=== PATIENT | male | born 1935 | race Caucasian/White ===

== ENCOUNTER 2016-11-01 09:48 | Emergency (ER) | payer MEDICARE, BC ==
[2016-11-01 09:28] LABS: BASOPHILS 0.2 %; BASOPHILS ABSOLUTE 0.02 10/3/uL (0.0-0.16); EOSINOPHILS ABSOLUTE 0.11 10/3/uL (0.0-0.53); HEMATOCRIT 38.6 % (40.0-51.0); HEMOGLOBIN 12.6 g/dL (13.6-17.8); IMMATURE GRANULOCYTES 0.3 %; IMMATURE GRANULOCYTES ABSOLUTE 0.03 10/3/uL (0.0-0.11); LYMPHOCYTES 28.7 %; MANUAL DIFF NO %; MEAN CORPUS HGB CONC 32.6 g/dL (32.0-36.0); MEAN CORPUSCULAR HEMOGLOB 29.5 pg (26.0-34.0); MEAN CORPUSCULAR VOLUME 90.4 fL (80-100); MEAN PLATELET VOLUME 9.1 fL (9.2-13.0); MONOCYTES 7.2 %; MONOCYTES ABSOLUTE 0.78 10/3/uL (0.21-1.20); NEUTROPHILS 62.6 %; NEUTROPHILS ABSOLUTE 6.78 10/3/uL (2.02-8.40); PLATELET COUNT 218 10/3/uL (150-400); RBC DISTRIBUTION WIDTH 14.9 % (12.0-16.0); RED CELL COUNT 4.27 10/6/uL (4.7-6.1); WHITE BLOOD CELLS 10.8 10/3/uL (4.5-10.5)
[2016-11-01 09:34] LABS: INTERNATIONAL NORMAL RATI 1.2 UNITS (-); PARTIAL THROMBO TIME 24.2 SEC (22.5-37.2); PROTIME (NOT ORD) 14.7 SEC (12.0-14.5)
[2016-11-01 09:41] LABS: ASCORBIC ACID (UR NOT ORDER) NEG (NEG); BILIRUBIN, URINE NEGATIVE (NEG); ER URINALYSIS TAT 0 Hrs 07 Mins; KETONE, URINE NEGATIVE (NEG); LEUKOCYTE ESTERASE(NOT OR NEG (NEG); NITRITE (URINE) NEG (NEG); WBC (NOT ORDERED) (RFLEX) 1 (0-5)
[2016-11-01 09:44] LABS: CHEST PAIN PROFILE TAT 0 Hrs 22 Mins; CHLORIDE, SERUM 109 MMOL/L (96-112); CO2 (CARBON DIOXIDE) 25 MMOL/L (24-34); CREATININE 1.29 MG/DL (0.70-1.30); GFR AFRICAN AMERICAN 60 ML/MIN (>=60); GFR NON AFRICAN AMERICAN 52 ML/MIN (>=60); POTASSIUM, SERUM 3.7 MMOL/L (3.5-5.3); SODIUM, SERUM 143 MMOL/L (135-148); TROPONIN I <0.02 NG/ML (<0.05)
[2016-11-01 09:46] LABS: BUN (BLOOD UREA NITROGEN) 36 MG/DL (6-23); CALCIUM, SERUM 8.1 MG/DL (8.5-10.4); GLUCOSE, SERUM 175 MG/DL (60-99)
[~2016-11-01 09:48] MED LIST: AMARYL1 MG PO; AMARYL2 PO; ASAB PO; CRESTOR20 MG PO; FISH-EPA1000 MG PO; GLUCPH8 PO; GLYNASE3 PO; INSPRA25 PO; JANUVIA100 MG PO; L20 PO; LEVEMFLXPN SC; LIPITOR40 PO; LOP25 PO; LOP50 PO; LORTAB 5 PO; NEUR600 PO; NITROSTAT0.4 MG SL; NORCO1 TAB PO; PROTONIX PO; SUCR PO; ZANTAC150 MG PO
[2016-11-01 11:51] LABS: LACTATE 1.2 MMOL/L (0.3-2.4)
[2016-11-01 11:53] LABS: PROCALCITONIN <0.05 ng/mL (<0.5)
== END 2016-11-01 15:03 | disposition home or self-care (01) ==
LOC: ER 09:48
PROVIDERS: Emergency Medicine
DX: I95.1 Orthostatic hypotension (principal); E11.9 Type 2 diabetes mellitus without complications; I10 Essential (primary) hypertension; Z95.1 Presence of aortocoronary bypass graft; Z79.82 Long term (current) use of aspirin; Z79.4 Long term (current) use of insulin; Z79.899 Other long term (current) drug therapy
CPT/HCPCS: 71010; 80048; 81001; 83605; 83735; 84145; 84484; 85025; 85610; 85730; 96374; 99285; J2405

== ENCOUNTER 2016-11-05 17:50 | Inpatient (IN) | payer MEDICARE, BC ==
--- NOTE | ~2016-11-05 | EEG ---
Electroencephalogram [id number] [place]. [address] NAME: BARRETT SOLORIO : 35 STATUS : DIS IN PAT#: [id number] AGE: 81 ADM/REG DATE : 11/05/16 MR#: [id number] REPORT SERV DATE: 11/08/16 DICTATED BY: YULY PATTEN DATE: 11/08/16 REPORT STATUS : Draft TRANSCRIBED BY: LOGAN DATE: 11/08/16 LOCATION OF THE PATIENT: CDU bed 23. REFERRING PHYSICIAN: . ORDERING PHYSICIAN: Dilma Gomez [facility]. INTERPRETING PHYSICIAN: Yuly Patten M.D. EEG NUMBER: [id number]. REASON FOR EEG: Episodes of syncope, rule out seizures. 23 surface electrodes, 10-20 international placement was used. The patient was noted to be awake and drowsy. Photic stimulation was performed. The background activity consisted of low voltage, 9 to 10 cycles per second located in the posterior head regions activity attenuated with the eye opening maneuvers. Photic stimulation did not produce significant driving response or additional changes. No significant asymmetry of cerebral activity was noted. The patient's monitoring analyst showed borderline sinus tachycardia, heart rate of approximately 58 to 60 beats per minute. IMPRESSION: THIS EEG WITHIN NORMAL RANGE FOR AN AWAKE AND DROWSY STATE. CLINICAL CORRELATION IS RECOMMENDED. MANUEL/LOGAN Yuly Patten MD / [id number] CC: Zayra Dennis Max Russell II
--- NOTE | ~2016-11-05 | PUL ---
[address] [address] NAME: BARRETT SOLORIO : 35 STATUS : DIS IN PAT#: [id number] AGE: 81 ADM/REG DATE : 11/05/16 MR#: [id number] REPORT SERV DATE: 11/10/16 DICTATED BY: BETHANY JOHNSON DATE: 11/10/16 REPORT STATUS : Draft TRANSCRIBED BY: MODL DATE: 11/10/16 PULMONARY FUNCTION TEST PROCEDURE PERFORMED: Overnight oximetry performed on room air at rest. The patient spent only 20 seconds with an oxygen saturation less than 88%, and the longest time with an oxygen saturation less than or equal to 88% was only 42 seconds. IMPRESSION: No significant sustained desaturation. DOT/LOGAN Bethany Johnson M.D. / [id number] CC: Zayra Dennis MAX RUSSELL II
--- NOTE | ~2016-11-05 | HP ---
History And Physical [address] [address] NAME: BARRETT SOLORIO : 35 STATUS : ADM Sharita PAT#: [id number] AGE: 81 ADM/REG DATE : 11/05/16 MR#: [id number] REPORT SERV DATE: 11/06/16 DICTATED BY: KAVYA NELSON DATE: 11/06/16 REPORT STATUS : Draft TRANSCRIBED BY: MODL DATE: 11/06/16 DATE OF ADMISSION: 11/05/2016 CHIEF COMPLAINT: An 81-year-old male presenting with recurrent syncopal episodes and orthostasis symptoms. HISTORY OF PRESENT ILLNESS: The patient's history was obtained through careful interview with the patient, coupled with review of [facility]. The patient states that he has felt increasing lightheadedness and orthostatics symptoms over about four or five days. Four days ago, he visited our emergency department with a syncopal episode, and afterwards his had measured a blood pressure of 77/42, who was seen in the emergency department, given IV fluids and stabilized, and sent home. On the afternoon of admission, the patient was out doing some weed eating work in his yard and began to feel kind of achy in his shoulders and uncomfortable and weak. He came inside and promptly passed out after feeling lightheaded. He may have only been out for a few seconds he believes. No headache, no closed head injury, no chest pain, no abdominal pain, and in fact, the patient has no pain complaints whatsoever. No nausea or vomiting. No diarrhea. The patient claims his diabetes is usually under excellent control with rare blood sugars over 200. REVIEW OF SYSTEMS: Otherwise a 14-point review of systems was obtained and was negative. PAST MEDICAL HISTORY: 1. Coronary artery disease, status post CABG, followed by Dr. Dionisio Teran. 2. Diabetes. 3. Dyslipidemia. 4. Hypertension. 5. Gastroesophageal reflux disorder, seen by Dr. Davon Chiang. 6. Syncope. 7. Prostate cancer in 1993, status post surgical resection. 8. Colon polyps. PAST SURGICAL HISTORY: 1. CABG in January 2016. 2. Prostatectomy. 3. Right inguinal hernia repair. 4. Appendectomy. 5. Cholecystectomy. History And Physical [address] [address] NAME: BARRETT SOLORIO : 35 STATUS : ADM Sharita PAT#: [id number] AGE: 81 ADM/REG DATE : 11/05/16 MR#: [id number] REPORT SERV DATE: 11/06/16 DICTATED BY: KAVYA NELSON DATE: 11/06/16 REPORT STATUS : Draft TRANSCRIBED BY: LOGAN DATE: 11/06/16 6. Abdominal abscess drainages in 2009 and 2015. 7. Skin cancer removed. ALLERGIES: NO KNOWN DRUG ALLERGIES. SOCIAL HISTORY: No tobacco abuse. No alcohol abuse. He is . Lives in [place], [place]. 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 FAMILY HISTORY: Father with Hodgkin's lymphoma. Mother with stroke. Brother with heart failure and atrial fibrillation. CURRENT MEDICATIONS: 1. Norvasc 10 mg p.o. daily. 2. Aspirin 81 mg daily. 3. Lipitor 40 mg daily. 4. Inspra 25 mg p.o. q.h.s. 5. Lasix 10 mg daily. 6. Neurontin 600 mg p.o. t.i.d. 7. Glipizide 10 mg daily. 8. Humulin 20 units subcutaneous at bedtime. 9. Atrovent. 10.Cozaar 100 mg daily. 11.Toprol-XL 100 mg p.o. q.a.m. 12.Fish oil 2000 mg p.o. daily. 13.Protonix 40 mg daily. 14.Januvia 100 mg daily. 15.Prednisone, recent therapy. PHYSICAL EXAMINATION: VITAL SIGNS: Temperature 98.5, pulse 61, blood pressure as low as 116/53, respiratory rate 16, and O2 saturation 94% on room air. GENERAL: A pleasant, cooperative male, in no evidence of acute distress. HEENT: Pupils equal, round, and reactive to light. No conjunctival pallor. No scleral icterus. Nares are patent. Oropharynx is clear of obstruction. Dry mucous membranes. NECK: Trachea midline. No thyromegaly. LYMPH: No cervical lymphadenopathy. No supraclavicular lymphadenopathy. RESPIRATORY: Clear to auscultation at bases. No wheezes, rales, or rhonchi. Normal respiratory effort. CARDIOVASCULAR: Bradycardic. Regular rhythm. No murmurs, rubs, or gallops. No current extremity edema is appreciated. ABDOMEN: Soft, nontender, and nondistended. Normal bowel sounds auscultated throughout. No hepatosplenomegaly. DERMATOLOGICAL: Warm and dry extremities. No pallor. No cyanosis. PSYCHIATRIC: Normal affect. Good mood. Alert and oriented x3. LABORATORY DATA: Troponin negative. INR 1.1. History And Physical [address] [address] NAME: BARRETT SOLORIO : 35 STATUS : ADM Sharita PAT#: [id number] AGE: 81 ADM/REG DATE : 11/05/16 MR#: [id number] REPORT SERV DATE: 11/06/16 DICTATED BY: KAVYA NELSON DATE: 11/06/16 REPORT STATUS : Draft TRANSCRIBED BY: LOGAN DATE: 11/06/16 White blood cell count 11.2, hemoglobin 13, hematocrit 38, and platelets 201. Sodium 139, potassium 4.0, chloride 106, bicarb 25, BUN 23, creatinine 1.77 from baseline creatinine of 1.29, and glucose 251. Urinalysis negative for infection, but shows 6 hyaline casts. STUDIES: 1. Chest x-ray by my own evaluation shows no acute cardiopulmonary process. 2. EKG by my own evaluation shows sinus bradycardia, 59 beats per minute. 3. CT scan of the brain without contrast shows no acute intracranial process. ASSESSMENT AND PLAN: 1. Syncope with orthostatic symptoms. Place on IV fluids. Adjust blood pressure medications. Stop Lasix. Check telemetry. 2. Dehydration with acute kidney injury. Place on IV fluids. Hold Lasix. 3. Diabetes. Check hemoglobin A1c. Continue basal insulin plus sliding scale insulin. 4. Bradycardia. We would like to try to cut the patient's beta-isadora in half from 100 mg daily to 50 mg daily, and monitor closely. KPL/MODL Kavya Nelson M.D. / [id number] CC: Neeraj Jaramillo Jr, MD Gordon Graham, M.D.
--- NOTE | ~2016-11-05 | CN ---
Consultation Report [facility] [address] [place]. [address] NAME: BARRETT SOLORIO : 35 STATUS : ADM Sharita PAT#: [id number] AGE: 81 ADM/REG DATE : 11/05/16 MR#: [id number] REPORT SERV DATE: 11/07/16 DICTATED BY: MIKAL GROVER DATE: 11/07/16 REPORT STATUS : Draft TRANSCRIBED BY: MODL DATE: 11/07/16 NEUROLOGY CONSULTATION DATE OF CONSULTATION: 11/07/2016 HOSPITALISTS: Neeraj Jaramillo Jr, MD and Kalen Ledesma NP REASON FOR CONSULTATION: Syncope. HISTORY OF PRESENT ILLNESS: The patient is an 81-year-old male, who has had a longstanding history of intermittent syncopal episodes. According to the patient's , he has had infrequent syncope for the last 20-25 years. He will have these occasionally and they usually occur with position changes. They happen when the position will go quickly from a sitting to standing position. The latest episode occurred this last week. evening, the patient was placed on Hytrin and Friday morning, he got up quickly out of bed and went to the bathroom. The heard him pass out by the shower stall. When she got in there, she found that the patient was not breathing and called for a family member to help with possibly do him CPR. He did come to, he was incontinent of urine. He did not bite his tongue and quickly regained consciousness. The states that he was an khushbu in color and seemed to be somewhat upset and angry, but was not drowsy afterwards. In fact, the patient has never drowsy after these episodes. He is usually oriented. Last Friday afternoon, the patient was out weed eating and he came into the house to get a glass of water and passed out. According to the and patient, he has been evaluated several times at several hospitals for the syncopal episodes. He has never been diagnosed with seizure, stroke, or anything specific. PAST MEDICAL HISTORY: Coronary artery disease, diabetes mellitus type 2, dyslipidemia, hypertension, GERD, prostate cancer, colon polyps, and syncopal episodes, etiology unknown. PAST SURGICAL HISTORY: Coronary artery bypass grafting in December of 2015, prostatectomy, right inguinal hernia repair, appendectomy, cholecystectomy, skin cancer removal, abdominal abscess removal x2. HOME MEDICATION LIST: Includes Norvasc 10 mg q.a.m., aspirin 81 mg daily, Lipitor 40 mg at bedtime, Inspra 25 mg at bedtime, Lasix 10 mg q.a.m., Neurontin 600 mg t.i.d., Glucotrol 10 mg q.a.m., Humulin N 20 units subcu at bedtime, Atrovent nasal spray, Cozaar 100 mg at bedtime, Toprol-XL 100 mg q.a.m., fish oil 2000 mg every morning, Protonix 40 mg at bedtime, Januvia 100 mg q.a.m. ALLERGIES: NONE. SOCIAL HISTORY: The patient is . He lives with his . He has no children of his Consultation Report [address] [place]. [address] NAME: BARRETT SOLORIO : 35 STATUS : ADM Sharita PAT#: [id number] AGE: 81 ADM/REG DATE : 11/05/16 MR#: [id number] REPORT SERV DATE: 11/07/16 DICTATED BY: MIKAL GROVER DATE: 11/07/16 REPORT STATUS : Draft TRANSCRIBED BY: LOGAN DATE: 11/07/16 own, but has step children. 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 Does not smoke, does not drink alcohol or use illicits. FAMILY HISTORY: His father from Hodgkin lymphoma. His mother from a stroke. He has a brother who has CHF and atrial fibrillation. REVIEW OF SYSTEMS: For pertinent positive, see HPI. PHYSICAL EXAMINATION: GENERAL: The patient is an 81-year-old male, who stands 5 feet 8 inches tall and weighs 186 pounds. VITAL SIGNS: He is afebrile. Heart rate 67, respiratory rate 20, O2 saturations on room air 96%, blood pressure 170/81. NEURO: He is alert, oriented x4, pleasant, communicates appropriately. Speech is clear. Language fluent. Pupils are 3 mm. PERRLA. Cranial nerves 2 through 12 are intact. Move all extremities x4. No dysmetria with [id number]. There is no pronator drift, ataxia, tremor. No asterixis. Upper extremity strength is 5/5. Upper DTRs 2+ bilaterally. No reported sensory deficits. Lower extremity strength is 5/5. Lower DTRs 2+ bilaterally. Downgoing toes. No reported sensory deficits. NECK: No carotid bruits, JVD, or thyromegaly. CHEST: Lung sounds clear. CARDIAC: Regular rate and rhythm with a slight grade 2/6 systolic murmur. CBC is normal. BMP normal except the glucose is 127. A1c 7.9. TSH is normal. Chest x- ray, no acute changes. UA negative for UTI, and CT of the brain shows some atrophy but no acute changes. ASSESSMENT/PLAN: Syncopal episodes. 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 At this point, the patient will continue to have orthostatics vital signs done and we will reevaluate his blood pressure medications. He also needs good diabetic control. He will undergo an MRA of the head and neck to rule out vertebral basilar insufficiency and an MRI of the brain to rule out any structural abnormalities. He will have an echo to rule out aortic stenosis and an EEG to rule out the slight possibility of seizure activity. He could also be experiencing severe bradycardia or cardiac arrhythmia. If everything comes back normal, we will send him back to Cardiology for possible loop recorder implantation. Lab work will be drawn which will include an a.m. cortisol level to rule out adrenal insufficiency. Thank you again for including us in consultation. We will follow with you. TUAN/LOGAN Consultation Report [address] [place]. [address] NAME: BARRETT SOLORIO : 35 STATUS : ADM Sharita PAT#: [id number] AGE: 81 ADM/REG DATE : 11/05/16 MR#: [id number] REPORT SERV DATE: 11/07/16 DICTATED BY: MIKAL GROVER DATE: 11/07/16 REPORT STATUS : Draft TRANSCRIBED BY: LOGAN DATE: 11/07/16 JALEN Song-BC / [id number] CC: Zayra Dennis Max Russell II
--- NOTE | ~2016-11-05 | DS ---
Discharge Summary [address] [place]. [address] NAME: BARRETT SOLORIO : 35 STATUS : DIS IN PAT#: [id number] AGE: 81 ADM/REG DATE : 11/05/16 MR#: [id number] REPORT SERV DATE: 11/09/16 DICTATED BY: JENNIFER PRADHAN DATE: 11/08/16 REPORT STATUS : Draft TRANSCRIBED BY: MODL DATE: 11/08/16 ADMISSION DATE: 11/05/2016 DISCHARGE DATE: 11/08/2016 DISCHARGE DIAGNOSES: 1. Syncopal episode, more likely orthostatic hypotension secondary to Hytrin. 2. Acute kidney injury on chronic kidney disease with slight dehydration, it is improved with a mild gentle hydration. 3. Diabetes mellitus. A1c was 7.9. 4. Hypertension. 5. Vitamin B12 deficiency. 6. Sinus bradycardia, stable around 50s and 60s, his Toprol-XL was decreased to 50 mg once a day and he is tolerating well, and blood pressure and heart rate are stable. DIVER PUMPER: [facility]. PROCEDURES: 1. MRA and MRI of the brain. 2. Echocardiogram, which was not showing any significant change from the last echocardiogram in 2016, showing ejection fraction 60%, mild left ventricular diastolic dysfunction with normal right ventricle size and function with mildly dilated aortic root at 3.8 cm. The patient is followed by Dr. Teran closely. 3. Hypertension. The patient also has white coat syndrome. His blood pressure medication is being gradually increased. This problem, he came with hypotension especially after one dose of Hytrin. While he was in the hospital, his medications have been adjusted with decreasing of Toprol-XL down to 50 mg once a day and Cozaar 50 mg once a day. Continue amlodipine 10 mg once a day and his blood pressure has in a range of 110 to 150, in stable range. HISTORY OF PRESENT ILLNESS: This is an 81-year-old male patient, who has multiple medical problems, came to the hospital with passing out episode twice last week. Please see dictated H and P. HOSPITAL COURSE: He was admitted to hospital with syncopal episode. It is more likely related with his Hytrin use the night before. At the same time, he was found to be hypotensive at home with systolic blood pressure around 70s. His blood pressure has been managed mainly by Dr. Teran. Interestingly, the patient has white coat syndrome. His blood pressure medications have been slowly increased. However, he checked one does of Hytrin for the prostate problem and blood pressure control, and the next day, he was waiting outside for 30 minutes and had a passing out episode at home. It was more likely orthostatic hypotension and dehydration issue. He was kept in the hospital to get further evaluation. His blood pressure has been recovered with gentle hydration. Seen by [facility] for syncopal episode, had a negative workup as mentioned above. Meanwhile, his blood pressure medication has been slightly decreased, Toprol down to 50 mg once a day and Cozaar down to 50 mg once a day. He was kept on the same dose of amlodipine 10 mg once a Discharge Summary [address] [address] NAME: BARRETT SOLORIO : 35 STATUS : DIS IN PAT#: [id number] AGE: 81 ADM/REG DATE : 11/05/16 MR#: [id number] REPORT SERV DATE: 11/09/16 DICTATED BY: JENNIFER PRADHAN DATE: 11/08/16 REPORT STATUS : Draft TRANSCRIBED BY: LOGAN DATE: 11/08/16 day. Also, his Lasix was on hold. He did not take the Lasix for the last three days without any significant clinical symptoms. Overall, the patient had a stable hospitalization and his blood pressure is being closely monitored and his heart rate is being monitored. There is no any evidence of arrhythmia, evidence of seizures, or evidence of cardiovascular disease. His electrocardiogram has been compared to 2016 and is about the same looking and also he had a normal EEG exam. We ruled out a lot of cardiac and neurologic diseases and he did not have any orthostatic change when we checked orthostatic blood pressure while he is in the hospital. He did have continued cardiac monitoring. Did not have any episodes or evidence of arrhythmia. Overall, the patient improved and maximized inpatient benefit. The patient will be discharged home with close followup with ambulatory blood pressure and medicine adjustment if needed by Dr. Teran. DISCHARGE MEDICATIONS: Continue the Norvasc once a day, aspirin 81 mg once a day, Lipitor 40 mg once a day, Januvia 100 mg once a day, Inspra 25 mg once a day, Neurontin 300 mg three times a day, Glucotrol 10 mg once a day, Humulin N 20 units at night, Losartan 50 mg once a day, Toprol-XL 50 mg once at night, fish oil once a day, Protonix 40 mg once at night, Atrovent nasal spray as needed, and Lasix is recommended discontinuing. DISPOSITION: The patient is discharged to home in stable condition. TIME SPENT: More than 30 minutes in patient education and coordination. EKL/MODL Jennifer Pradhan M.D. / [id number] CC: Zayra Dennis II
[2016-11-05 18:01] LABS: WBC (NOT ORDERED) (RFLEX) 0 (0-5)
[2016-11-05 18:05] LABS: BASOPHILS 0.3 %; BASOPHILS ABSOLUTE 0.03 10/3/uL (0.0-0.16); EOSINOPHILS 1.9 %; EOSINOPHILS ABSOLUTE 0.21 10/3/uL (0.0-0.53); ER CBC TAT 0 Hrs 05 Mins; HEMATOCRIT 37.8 % (40.0-51.0); HEMOGLOBIN 12.8 g/dL (13.6-17.8); IMMATURE GRANULOCYTES 0.2 %; IMMATURE GRANULOCYTES ABSOLUTE 0.02 10/3/uL (0.0-0.11); LYMPHOCYTES 16.7 %; LYMPHOCYTES ABSOLUTE 1.87 10/3/uL (0.67-4.30); MEAN CORPUS HGB CONC 33.9 g/dL (32.0-36.0); MEAN CORPUSCULAR HEMOGLOB 30.1 pg (26.0-34.0); MEAN CORPUSCULAR VOLUME 88.9 fL (80-100); MEAN PLATELET VOLUME 9.6 fL (9.2-13.0); MONOCYTES 7.8 %; MONOCYTES ABSOLUTE 0.87 10/3/uL (0.21-1.20); NEUTROPHILS 73.1 %; PLATELET COUNT 201 10/3/uL (150-400); RBC DISTRIBUTION WIDTH 15.1 % (12.0-16.0); RED CELL COUNT 4.25 10/6/uL (4.7-6.1); WHITE BLOOD CELLS 11.2 10/3/uL (4.5-10.5)
[2016-11-05 18:06] LABS: MANUAL DIFF NO %
[2016-11-05 18:09] LABS: ASCORBIC ACID (UR NOT ORDER) NEG (NEG); BILIRUBIN, URINE NEGATIVE (NEG); ER URINALYSIS TAT 0 Hrs 09 Mins; KETONE, URINE NEGATIVE (NEG); LEUKOCYTE ESTERASE(NOT OR NEG (NEG); NITRITE (URINE) NEG (NEG)
[2016-11-05 18:16] LABS: INTERNATIONAL NORMAL RATI 1.1 UNITS (-); PROTIME (NOT ORD) 14.2 SEC (12.0-14.5)
[2016-11-05 18:17] LABS: PARTIAL THROMBO TIME 30.1 SEC (22.5-37.2)
[2016-11-05 18:20] LABS: CALCIUM, SERUM 8.7 MG/DL (8.5-10.4); CHEST PAIN PROFILE TAT 0 Hrs 20 Mins; CHLORIDE, SERUM 106 MMOL/L (96-112); CO2 (CARBON DIOXIDE) 25 MMOL/L (24-34); CREATININE 1.77 MG/DL (0.70-1.30); GFR AFRICAN AMERICAN 41 ML/MIN (>=60); GFR NON AFRICAN AMERICAN 35 ML/MIN (>=60); SODIUM, SERUM 139 MMOL/L (135-148); TROPONIN I <0.02 NG/ML (<0.05)
[2016-11-05 18:21] LABS: BUN (BLOOD UREA NITROGEN) 23 MG/DL (6-23); GLUCOSE, SERUM 251 MG/DL (60-99)
[2016-11-05] MEDS ORDERED: ASAB PO (21:59)
[2016-11-05] MEDS ORDERED: LIPITOR40 PO (21:59)
[2016-11-05] MEDS ORDERED: GLUCOTRO10 PO (21:59)
[2016-11-05] MEDS ORDERED: NEUR600 PO (21:59)
[2016-11-05] MEDS ORDERED: NORV10 PO (21:59)
[2016-11-05] MEDS ORDERED: INSPRA25 PO (22:00)
[2016-11-05] MEDS ORDERED: HUMULIN N1 ML SC (22:00)
[2016-11-05] MEDS ORDERED: COZAAR100 MG PO (22:01)
[2016-11-05] MEDS ORDERED: ATRONASAL3 NAS (22:01)
[2016-11-05] MEDS ORDERED: TOPXL100 PO (22:01)
[2016-11-05] MEDS ORDERED: JANUVIA100 MG PO (22:01)
[2016-11-05] MEDS ORDERED: L20 PO (22:01)
[2016-11-05] MEDS ORDERED: PROTONIX PO (22:02)
[2016-11-05] MEDS ORDERED: VENTOLIN HFA INH (22:04)
[2016-11-05] MEDS ORDERED: PREDNISONE 20MG (22:04)
[2016-11-05] MEDS ORDERED: FISH-EPA1000 MG PO (22:05)
[2016-11-06 04:40] LABS: BASOPHILS 0.3 %; BASOPHILS ABSOLUTE 0.03 10/3/uL (0.0-0.16); EOSINOPHILS 2.8 %; EOSINOPHILS ABSOLUTE 0.24 10/3/uL (0.0-0.53); HEMATOCRIT 36.8 % (40.0-51.0); HEMOGLOBIN 12.2 g/dL (13.6-17.8); IMMATURE GRANULOCYTES 0.2 %; IMMATURE GRANULOCYTES ABSOLUTE 0.02 10/3/uL (0.0-0.11); LYMPHOCYTES 34.9 %; LYMPHOCYTES ABSOLUTE 3.03 10/3/uL (0.67-4.30); MEAN CORPUS HGB CONC 33.2 g/dL (32.0-36.0); MEAN CORPUSCULAR HEMOGLOB 29.7 pg (26.0-34.0); MEAN CORPUSCULAR VOLUME 89.5 fL (80-100); MEAN PLATELET VOLUME 9.5 fL (9.2-13.0); MONOCYTES 10.1 %; MONOCYTES ABSOLUTE 0.88 10/3/uL (0.21-1.20); NEUTROPHILS 51.7 %; NEUTROPHILS ABSOLUTE 4.47 10/3/uL (2.02-8.40); PLATELET COUNT 181 10/3/uL (150-400); RBC DISTRIBUTION WIDTH 15.2 % (12.0-16.0); RED CELL COUNT 4.11 10/6/uL (4.7-6.1); WHITE BLOOD CELLS 8.7 10/3/uL (4.5-10.5)
[2016-11-06 04:44] LABS: MANUAL DIFF NO %
[2016-11-06 04:49] LABS: INTERNATIONAL NORMAL RATI 1.1 UNITS (-); PARTIAL THROMBO TIME 31.4 SEC (22.5-37.2); PROTIME (NOT ORD) 14.4 SEC (12.0-14.5)
[2016-11-06 04:55] LABS: CALCIUM, SERUM 8.6 MG/DL (8.5-10.4); CHLORIDE, SERUM 112 MMOL/L (96-112); CO2 (CARBON DIOXIDE) 27 MMOL/L (24-34); CREATININE 1.39 MG/DL (0.70-1.30); GFR AFRICAN AMERICAN 55 ML/MIN (>=60); GFR NON AFRICAN AMERICAN 47 ML/MIN (>=60); POTASSIUM, SERUM 4.1 MMOL/L (3.5-5.3); SGOT(AST) 13 U/L (5-40); SGPT(ALT) 28 U/L (5-65); TOTAL PROTEIN 6.1 G/DL (6.0-8.5); TROPONIN I <0.02 NG/ML (<0.05)
[2016-11-06 04:58] LABS: A/G RATIO 0.8 (0.7-1.9); ALBUMIN 2.8 G/DL (3.5-5.0); ALKALINE PHOSPHATASE 84 U/L (45-117); BUN (BLOOD UREA NITROGEN) 19 MG/DL (6-23); GLOBULIN 3.3 G/DL (2.5-4.1); GLUCOSE, SERUM 175 MG/DL (60-99); SODIUM, SERUM 146 MMOL/L (135-148); TOTAL BILIRUBIN 0.3 MG/DL (0-1.2)
[2016-11-06 05:10] LABS: B NATRIURETIC PEPTIDE (BNP) 51.3 PG/ML (< 100.0)
[2016-11-06 08:05] LABS: GLYCOHEMOGLOBIN (HbA1c) 7.9 % (4.7-6.1)
[2016-11-06] MEDS ORDERED: NORV10 PO (11:55)
[2016-11-06] MEDS ORDERED: NEUR300 PO (11:56)
[2016-11-06] MEDS ORDERED: COZAAR100 MG PO (11:58)
[2016-11-06] MEDS ORDERED: TOPXL50 PO (11:59)
[2016-11-07 03:50] LABS: BUN (BLOOD UREA NITROGEN) 16 MG/DL (6-23); CALCIUM, SERUM 9.3 MG/DL (8.5-10.4); CHLORIDE, SERUM 110 MMOL/L (96-112); CO2 (CARBON DIOXIDE) 27 MMOL/L (24-34); CREATININE 1.18 MG/DL (0.70-1.30); GFR AFRICAN AMERICAN 67 ML/MIN (>=60); GFR NON AFRICAN AMERICAN 58 ML/MIN (>=60); POTASSIUM, SERUM 4.1 MMOL/L (3.5-5.3); SODIUM, SERUM 142 MMOL/L (135-148)
[2016-11-07 03:51] LABS: GLUCOSE, SERUM 127 MG/DL (60-99)
[2016-11-08 03:56] LABS: BUN (BLOOD UREA NITROGEN) 19 MG/DL (6-23); CALCIUM, SERUM 9.1 MG/DL (8.5-10.4); CHLORIDE, SERUM 109 MMOL/L (96-112); CO2 (CARBON DIOXIDE) 27 MMOL/L (24-34); CREATININE 1.34 MG/DL (0.70-1.30); GFR AFRICAN AMERICAN 57 ML/MIN (>=60); GFR NON AFRICAN AMERICAN 49 ML/MIN (>=60); POTASSIUM, SERUM 4.3 MMOL/L (3.5-5.3); SODIUM, SERUM 144 MMOL/L (135-148)
[2016-11-08 03:58] LABS: GLUCOSE, SERUM 159 MG/DL (60-99)
== END 2016-11-08 15:24 | disposition home health service (06) | DRG 312 ==
LOC: ER 17:50 → CDU1 22:49 → CDU2 23:13
PROVIDERS: Emergency Medicine; Internal Medicine; Nurse Practitioner
DX: I95.2 Hypotension due to drugs (principal); N17.9 Acute kidney failure, unspecified; E11.22 Type 2 diabetes mellitus with diabetic chronic kidney disease; R00.1 Bradycardia, unspecified; E86.0 Dehydration; I25.10 Atherosclerotic heart disease of native coronary artery without angina pectoris; E78.5 Hyperlipidemia, unspecified; K21.9 Gastro-esophageal reflux disease without esophagitis; T44.6X5A Adverse effect of alpha-adrenoreceptor antagonists, initial encounter; E53.8 Deficiency of other specified B group vitamins; Z95.1 Presence of aortocoronary bypass graft; Z85.46 Personal history of malignant neoplasm of prostate; Z86.010 Personal history of colon polyps; Z90.79 Acquired absence of other genital organ(s); Z90.49 Acquired absence of other specified parts of digestive tract; Z85.828 Personal history of other malignant neoplasm of skin; Z87.442 Personal history of urinary calculi; Z82.3 Family history of stroke; Z80.7 Family history of other malignant neoplasms of lymphoid, hematopoietic and related tissues; Z79.82 Long term (current) use of aspirin; I12.9 Hypertensive chronic kidney disease with stage 1 through stage 4 chronic kidney disease, or unspecified chronic kidney disease; N18.2 Chronic kidney disease, stage 2 (mild); Z79.4 Long term (current) use of insulin
CPT/HCPCS: 70450; 70544; 70548; 70551; 71020; 80048; 80053; 81001; 82140; 82533; 82607; 82746; 82962; 83036; 83735; 83880; 84443; 84484; 85025; 85610; 85730; 93005; 94762; 95816; 99285; A9270-GY; A9577; C8929; G0463; Q9957